=== PATIENT | male | born 1945 | race Caucasian/White ===

== ENCOUNTER 2018-11-23 10:25 | Emergency (ER) | payer MEDICARE ==
[2018-11-23] MEDS ORDERED: LIDOCAINE 1%-EPI 1:100,000 20 ML VIAL IJ ONE (10:38)
[2018-11-23] MEDS ORDERED: OCTYL 2-CYANOACRYLATE 1 EACH TP ONE (11:04)
== END 2018-11-23 11:22 | disposition home or self-care (01) ==
LOC: EDH 10:25
DX: S01.21XA Laceration without foreign body of nose, initial encounter (principal); G43.909 Migraine, unspecified, not intractable, without status migrainosus; I10 Essential (primary) hypertension; Z87.891 Personal history of nicotine dependence; W22.8XXA Striking against or struck by other objects, initial encounter; Y93.89 Activity, other specified; Y92.89 Other specified places as the place of occurrence of the external cause; Y99.8 Other external cause status
CPT/HCPCS: 12053; 99284; J3490